=== PATIENT | male | born 1980 | race Caucasian/White ===

== ENCOUNTER 2017-05-25 07:02 | Emergency (ER) | payer BC, OTHER ==
[~2017-05-25] VITALS: Ht 182.9 cm; Wt 102.1 kg
--- NOTE | ~2017-05-25 | EKG ---
[facility] [employer] [place] [address] ELECTROCARDIOGRAM REPORT Name: ROLA AGUDELO Room #: REG [facility]#: [id number] Admission: 05/25/17 Attend Phys: Discharge: Date of : 82 Report #: [id number] THIS REPORT FOR: //name// [facility] ED Test Date: 2017-05-25 Test Time: 07:07:30 Pat Name: ROLA AGUDELO Department: Room: Gender: [employer] Supervisor: [facility] : 1980 Requested By: Real Rodriguez Order Number: [id number] MD: Romeo Glez Measurements Intervals [place] Rate: 66 P: 25 NC: 133 QRS: 42 QRSD: 91 T: 26 QT: 394 QTc: 413 Interpretive Statements Sinus rhythm Compared to ECG 06/08/2009 15:03:25 Sinus bradycardia no longer present Poor R-wave progression no longer present Electronically Signed On 05-25-2017 8:14:24 CDT by Romeo Glez [email or web address] <ELECTRONICALLY SIGNED> By: Romeo Glez MD 05/25/17 0814 [id number] 6 Romeo Glez MD /LÁZARO
[~2017-05-25 07:02] MED LIST: CIPROFLOXACIN500 M1 PO; FLAGYL500 MG PO; MYLANTA 12 OZ355 M1 GT; NAPROSYN500 MG PO; NOHOMEMEDICATIONS; PERCOCET 5-3251 EACH PO; PHENERGAN 25 MG25 M1 PO; PROTONIX40 M2 PO; TRAMADOL 50 MG50 MG PO
[2017-05-25 07:42] LABS: ABSOLUTE NEUTROPHILS 4.6 thou/uL (1.4-8.2); BASOPHILS 1.2 % (0.0-2.0); EOSINOPHILS 4.6 % (0.0-3.0); HEMATOCRIT 44.4 % (42.0-52.0); HEMOGLOBIN 15.3 gm/dL (14.0-18.0); LYMPHOCYTES 22.4 % (24.0-44.0); MCH 32.6 pg (26.0-34.0); MCHC 34.5 g/dL (28.0-37.0); MCV 94.6 fL (80.0-100.0); MONOCYTES 7.6 % (1.0-8.0); PLATELET COUNT 244 thou/uL (150-400); POLYS 64.2 % (36.0-66.0); RDW 12.8 % (10.5-14.5); WBC 7.1 thou/uL (4.0-11.0)
[2017-05-25 07:44] LABS: ANION GAP 7 mmol/L (7-16); BUN 18 mg/dL (7-18); CALCIUM 9.1 mg/dL (8.5-10.1); CHLORIDE 104 mmol/L (98-107); CO2 27 mmol/L (21-32); CREATININE 1.1 mg/dL (0.7-1.3); GLUCOSE 109 mg/dL (74-106); POTASSIUM 4.3 mmol/L (3.5-5.1); SODIUM 138 mmol/L (136-145)
[2017-05-25 07:53] LABS: ALBUMIN 3.7 g/dL (3.4-5.0); DIRECT BILIRUBIN 0.1 mg/dL (<0.1-0.3); LIPASE 149 U/L (73-393); SGOT 22 U/L (15-37); SGPT 35 U/L (30-65); TOTAL BILIRUBIN 0.3 mg/dL (<0.1-1.0); TOTAL PROTEIN 7.2 g/dL (6.4-8.2); TROPONIN-I < 0.04 ng/mL (<0.06)
[2017-05-25] MEDS ORDERED: ZOFRAN ODT4 MG PO (08:31)
[2017-05-25] MEDS ORDERED: PROTONIX40 M2 PO (08:31)
[2017-05-25 08:45] VITALS: BP 137/80
== END 2017-05-25 09:35 | disposition home or self-care (01) ==
LOC: ER 07:02
PROVIDERS: Emergency Medicine
DX: R07.89 Other chest pain (principal); R11.2 Nausea with vomiting, unspecified; R68.84 Jaw pain; F17.210 Nicotine dependence, cigarettes, uncomplicated